=== PATIENT | female | born 1980 | race Caucasian/White ===

== ENCOUNTER → 2020-07-26 13:16 | Outpatient (BNVA) | payer OTHER, SELFPAY | PROVIDERS: Visit Provider Obstetrics & Gynecology | DX: Z76.89 Persons encountering health services in other specified circumstances (principal) ==

== ENCOUNTER 2020-10-08 13:01 | Outpatient (REF) | payer OTHER, SELFPAY ==
--- NOTE | 2020-10-08 13:07 | MM_ITS ---
EXAMINATION: MM SCREENING DIGITAL BREAST TOMOSYNTHESIS, BILATERAL CLINICAL INFORMATION: Screening. Asymptomatic. The lifetime risk of breast cancer based on the Tyrer-Cuzick Model is 7.6%. COMPARISON: Mammography: October 03, 2019 TECHNIQUE: Digital breast tomosynthesis is performed in both the craniocaudal and mediolateral oblique views along with computer-aided detection (CAD). Synthesized 2D images are generated from the tomosynthesis. Right breast exaggerated craniocaudal view also performed. FINDINGS: The breasts are extremely dense, which lowers the sensitivity of mammography (ACR BI-RADS breast composition Category d). There are no significant masses, abnormal calcifications, or other abnormalities. MM/MM tomosynthesis screening BI IMPRESSION: There are no significant changes from prior study. ASSESSMENT: BI-RADS 1: Negative RECOMMENDATION: Routine annual mammography screening. This patient's information was entered into a reminder system with a target due date for their next mammogram.
== END 2020-10-08 13:02 | disposition home or self-care (01) ==
LOC: HO.MAMMO 13:01
PROVIDERS: PCP Physician Assistant; Visit Provider Physician Assistant
DX: Z12.31 Encounter for screening mammogram for malignant neoplasm of breast (principal)
CPT/HCPCS: 77063; 77067

== ENCOUNTER 2023-06-21 08:28 | Outpatient (AMB) | payer MEDICAID, SELFPAY ==
[2023-06-21 08:50] VITALS: BP 130/90; BMI 27.9
--- NOTE | 2023-06-21 08:50 | MHC.OFFVIS ---
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 No complaints. Last Pap/HPV was negative in 2019, history of FRED 1 in 2018 Last Mammogram was BI-RADS 1 in 09/30 [facility] Medical History FRED I (cervical intraepithelial neoplasia I) LGSIL (low grade squamous intraepithelial dysplasia) Surgical History History of cholecystectomy H/O cosmetic surgery Tubal ligation status Female Reproductive History Menstrual Duration of menses: 3-5 days Date of last menstrual period: 05/24/23 control method: permanent sterilization Total pregnancies: 2 Full term: 2 Number of Living Children: 2 Date of last pap smear: 07/11/19 (negative) History of abnormal pap smear: Yes Date of Mammogram: 10/08/20 Review of Systems Const All systems reviewed & are unremarkable except as noted in HPI and below Card Reports as per HPI Resp Reports as per HPI GI Reports as per HPI and Reports no additional complaints Reports as per HPI Physical Exam Vital Signs: Last Vital Signs BP 130/90 H 06/21/23 08:50 BMI result Body Mass Index 27.9 Const General: cooperative, healthy appearing and comfortable Chest Chest palpation & inspection: normal inspection of the chest and normal palpation of entire chest wall Breast/axilla inspection: normal inspection of the breasts and normal inspection of the axillae Breast/axilla palpation: normal palpation of the breasts, normal palpation of the axillae and no axillary lymphadenopathy Resp Effort & Inspection: normal respiratory effort Auscultation: clear to auscultation bilaterally Percussion: percussion normal Cardio Palpation: normal PMI Rate: regular rate Rhythm: regular rhythm Heart sounds: no murmurs and no rubs Peripheral pulses: Peripheral pulses 2+ throughout GI Inspection: Yes normal to inspection Palpation (GI): Soft to palpation, nontender, no guarding, not rigid and No hepatosplenomegaly present Percussion: Yes normal to percussion Auscultation: normal bowel sounds Rectal Exam - Female: deferred General: Yes bladder normal to palpation External Female Exam: No lesion Speculum Exam - Vagina: normal appearance of the vagina, normal palpation, normal vaginal discharge and not erythematous Speculum Exam - Cervix: normal appearance of the cervix and normal palpation Bimanual exam- vagina & uterus: normal bimanual exam, normal palpation, uterine size normal, bladder normal to palpation, consistency normal and normal palpation Bimanual Exam- Adnexa, other: normal adnexae, no masses and no tenderness Assessment & Plan Assessment & Plan (1) Well woman exam: Code(s): Z01.419 - Encounter for gynecological examination (general) (routine) without abnormal findings Plan: Cotesting done. Mammogram ordered. Counseled the patient about the recommended dietary allowance of 1000 mg of Calcium & 600 IU of vitamin D. The patient was instructed to perform monthly self-breast exams and to schedule an annual exam in a year; All questions answered and the patient verbalized understanding. Instructed the patient to schedule annual exam in a year Orders: Orders MM screening mammo BI Today Z12.31 - Encounter for screening mammogram for malignant neoplasm of breast Coding Level of Care Code Est Pt Prev Care 40-64y(14643) Diagnoses Well woman exam Z01.419
== END 2023-06-21 09:12 | disposition home or self-care (01) ==
PROVIDERS: PCP Physician Assistant; Visit Provider Obstetrics & Gynecology
DX: Z01.419 Encounter for gynecological examination (general) (routine) without abnormal findings (principal)
CPT/HCPCS: 99396

== ENCOUNTER 2023-06-21 08:28 | Outpatient (REF) | payer MEDICAID, SELFPAY ==
[2023-06-28 05:33] LABS: HPV 16 RNA NOT DETECTED (NOT DETECTED); HPV mRNA E6/E7 rflx Detected (Not Detected)
== END 2023-06-21 08:29 | disposition home or self-care (01) ==
LOC: HO.LNP 08:28
PROVIDERS: PCP Physician Assistant; Visit Provider Obstetrics & Gynecology
DX: Z01.419 Encounter for gynecological examination (general) (routine) without abnormal findings (principal); N87.0 Mild cervical dysplasia
CPT/HCPCS: 87624; 87625; 88142; 99396

== ENCOUNTER 2023-07-16 12:39 | Outpatient (AMB) | payer MEDICAID, SELFPAY ==
[2023-07-16 12:59] VITALS: BP 130/88; BMI 27.8
--- NOTE | 2023-07-16 12:59 | MHC.OFFVIS ---
Intake Vital Signs 07/16/23 12:59 Height 5 ft 6 in Weight 172 lb BMI 27.8 BP 130/88 Intake Visit Reasons: Colposcopy Isotope Technician: Isotope Technician Present Allergies No Known Allergies [No Known Allergies*] Allergy (Verified 07/16/23 13:00) Is last menstrual period known: Yes Last menstrual period: 06/20/23 [facility] Medical History FRED I (cervical intraepithelial neoplasia I) LGSIL (low grade squamous intraepithelial dysplasia) Surgical History History of cholecystectomy H/O cosmetic surgery Tubal ligation status Female Reproductive History Menstrual Date of last menstrual period: 06/20/23 Physical Exam Vital Signs: Last Vital Signs BP 130/88 07/16/23 12:59 BMI result Body Mass Index 27.8 Office Procedures Colposcopy Before the procedure was started discussed with the patient the procedure, alternatives & all the risks associated with the procedure (bleeding, infection, injury to vagina, bladder, vessels, possible need for transfusion with all its risks) then patient signed the consent UPT done in the office & negative Pap smear = negative/HPV positive history of FRED 1 in 2019 Speculum inserted, acetic acid used Colposcopy done Transformation zone seen, acetowhite lesions identified at 12 o?clock, cervical biopsies taken from 12 o?clock, ECC done afterwards. Vaginoscopy of the upper vagina showed no evidence of any aceto-white lesions Monsel solution used for hemostasis. The patient tolerated well . At the end the patient was instructed to call if temp>100.4, abdominal pain, n/v, bleeding; The patient was given the following instructions: nothing per vagina, no intercourse or bath tub use. All questions answered the patient verbalized understanding. Instructed the patient to make an appointment in 2 weeks for follow-up This note was generated with a voice recognition program. Some errors may have been overlooked during the review of this note. Sometimes these errors may affect the content or meaning of a given sentence. 20711-Gsghgweuh of cervix including upper vagina with biopsy and ECC Procedure code (CPT) selection complete Results AMB Test Urine AMB Test Urine Negative Last Edit by JOSEPHINE Mobley on 07/16/23 13:03 Results Reviewed Results Reviewed: Laboratory Last Values [facility] Clinic Negative 07/16/23 13:03 Assessment & Plan Assessment & Plan Orders: Orders AMB HCG Urine Test Today Z32.02 - Encounter for test, result negative AMB Colposcopy Today B97.7 - Papillomavirus as the cause of diseases classified elsewhere Coding Level of Care Code Procedure Only CPT Codes Colposcopy - CPT: 44203-Rjsnczlno of cervix including upper vagina with biopsy and ECC ([id number])
== END 2023-07-16 13:22 | disposition home or self-care (01) ==
LOC: HO.HWS 12:39
PROVIDERS: PCP Physician Assistant; Visit Provider Obstetrics & Gynecology
DX: R87.810 Cervical high risk human papillomavirus (HPV) DNA test positive (principal); Z32.02 Encounter for pregnancy test, result negative
CPT/HCPCS: 57454

== ENCOUNTER 2023-07-16 12:39 | Outpatient (REF) | payer MEDICAID, SELFPAY | END 2023-07-16 12:40 | disposition home or self-care (01) | LOC: HO.LNP 12:39 | PROVIDERS: PCP Physician Assistant; Visit Provider Obstetrics & Gynecology | DX: N72 Inflammatory disease of cervix uteri (principal) | CPT/HCPCS: 57454; 81025; 88305 ==

== ENCOUNTER 2023-07-24 10:42 | Outpatient (REF) | payer MEDICAID, SELFPAY ==
--- NOTE | ~2023-07-24 | MM_ITS ---
EXAMINATION: MM SCREENING DIGITAL BREAST TOMOSYNTHESIS, BILATERAL CLINICAL INFORMATION: Screening. Asymptomatic. COMPARISON: Mammography: This study is compared with prior exams dating back to 2019. TECHNIQUE: Digital breast tomosynthesis is performed in both the craniocaudal and mediolateral oblique views along with computer-aided detection (CAD). Synthesized 2D images are generated from the tomosynthesis. FINDINGS: The breasts are heterogeneously dense, which may obscure small masses (ACR BI-RADS breast composition Category c). In the upper-outer quadrant of the right breast, there is a focal asymmetry which warrants additional mammographic and targeted sonographic imaging. In the left breast, there are no significant masses, abnormal calcifications, or other abnormalities. MM/MM tomosynthesis screening BI IMPRESSION: Focal asymmetry of the upper outer quadrant of the right breast warrants additional mammographic and targeted sonographic evaluation. When the patient returns for the diagnostic imaging, a laterally exaggerated cc view of the right breast should be added to the diagnostic imaging protocol. No mammographic signs of malignancy left breast. ASSESSMENT: BI-RADS BI-RADS 0 - Incomplete: Needs additional Imaging. RECOMMENDATION: 1. Additional views of the right breast 2. Targeted ultrasound if warranted after review of the additional views. 3. Radiology department staff will contact the patient for additional imaging. Additional Imaging required This examination should not preclude the clinical evaluation of a suspicious palpable abnormality. This patient's information was entered into a reminder system with a target due date for their next mammogram.
== END 2023-07-24 10:43 | disposition home or self-care (01) ==
LOC: HO.MAMMO 10:42
PROVIDERS: PCP Physician Assistant; Visit Provider Obstetrics & Gynecology
DX: Z12.31 Encounter for screening mammogram for malignant neoplasm of breast (principal)
CPT/HCPCS: 77063; 77067

== ENCOUNTER → 2023-07-24 11:15 | Outpatient (BNV) | payer MEDICAID, SELFPAY | PROVIDERS: PCP Physician Assistant; Visit Provider Radiology Diagnostic Radiology | DX: Z12.31 Encounter for screening mammogram for malignant neoplasm of breast (principal) | CPT/HCPCS: 77063; 77067 ==

== ENCOUNTER 2023-08-27 08:28 | Outpatient (AMB) | payer MEDICAID, SELFPAY ==
--- NOTE | 2023-08-27 08:39 | A.OFFVIS_ITS ---
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 The patient is doing well with no complaints. The pathology showed the following: A. Cervix, 12 o'clock, biopsy: Chronic cervicitis with reactive squamous epithelial changes; negative for squamous intraepithelial lesion. B. Endocervix, curettage: Fragments of benign endocervical glands; negative for squamous intraepithelial lesion. COMMENT: Note is made of the patient's previous Pap smear ([id number]; NILM; HPV+) [facility] Medical History FRED I (cervical intraepithelial neoplasia I) LGSIL (low grade squamous intraepithelial dysplasia) Surgical History History of cholecystectomy H/O cosmetic surgery Tubal ligation status Female Reproductive History Menstrual Date of last menstrual period: 07/30/23 Review of Systems Const All systems reviewed & are unremarkable except as noted in HPI and below Reports as per HPI and Reports no additional complaints GI Reports no additional complaints Reports no additional complaints Assessment & Plan Assessment & Plan (1) HPV in female: Code(s): B97.7 - Papillomavirus as the cause of diseases classified elsewhere Plan: Discussed with the patient the pathology results of the colposcopy biopsies & endocervical curettage ( negative). Discussed with the patient the sensitivity specificity, positive and negative predictive value in detecting cervical cancer in addition discussed the regression, persistence and progression rates. Recommended co-testing in 12 months, if cytology and or HPV are abnormal will proceed was colposcopy biopsy and endocervical curettage. Instructions given to the patient to schedule a co test appointment in 1 year. All questions answered the patient verbalized understanding. Coding Level of Care Code Est Pt Level 3 (03376) Diagnoses HPV in female B97.7
[2023-08-27 08:42] VITALS: BP 146/92; BMI 27.8
== END 2023-08-27 08:43 | disposition home or self-care (01) ==
PROVIDERS: PCP Physician Assistant; Visit Provider Obstetrics & Gynecology
DX: R87.810 Cervical high risk human papillomavirus (HPV) DNA test positive (principal)
CPT/HCPCS: 99213

== ENCOUNTER → 2023-08-27 08:28 | Outpatient (BNVA) | payer MEDICAID, SELFPAY | PROVIDERS: PCP Physician Assistant; Visit Provider Obstetrics & Gynecology | DX: B97.7 Papillomavirus as the cause of diseases classified elsewhere (principal) | CPT/HCPCS: 99212 ==

== ENCOUNTER 2023-08-30 14:30 | Outpatient (REF) | payer MEDICAID, SELFPAY ==
--- NOTE | ~2023-08-30 | MM_ITS ---
EXAMINATION: MM DIAGNOSTIC DIGITAL BREAST TOMOSYNTHESIS, RIGHT US BREAST LIMITED, RIGHT MAMMOGRAPHY: CLINICAL INFORMATION: Evaluate focal asymmetry upper outer right breast seen on screening exam. COMPARISON: Mammography: Screening mammography 07/24/2023, and dating back to 2019. TECHNIQUE: Digital breast tomosynthesis is performed in the following views: A full-field 3-D right exaggerated CCL view, full-field 3-D right mediolateral view, 3-D spot compression right MLO view x2, and 3-D spot compression right CC views x1. FINDINGS: The breasts are heterogeneously dense, which may obscure small masses (ACR BI-RADS breast composition Category c). In the upper outer right breast, there are at least 3 circumscribed low-density masses which are most likely related to cysts within bands of heterogeneously dense breast parenchyma. These will be evaluated by ultrasound. Otherwise, no suspicious calcifications, architectural distortion, or suspicious masses in the right breast. ULTRASOUND: CLINICAL INFORMATION: Evaluate focal asymmetry upper outer right breast. COMPARISON: None TECHNIQUE: Targeted sonographic evaluation was performed using a high frequency linear transducer. Attention was given to the upper outer right breast. Selected archived documentation. FINDINGS: RIGHT BREAST: In the 10:00 axis of the right breast, 4 cm from the nipple, there are 3 clustered simple cysts, the larger more superficial measuring 2.2 x 1.2 x 1.7 cm. The deeper measures approximately 1.6 x 1.4 x 1.4 cm. There is a small anterior simple cyst measuring a diameter of 7 mm. Abutting this, there is heterogeneously dense fibrocystic breast tissue present. No suspicious masses, abnormal shadowing, or edema within the soft tissue planes. MM/MM tomosynthesis added views R IMPRESSION: The abnormality in the upper outer quadrant of the RIGHT breast at the 10:00 axis is related to numerous grouped simple cysts measuring up to 2.2 cm, superimposed upon heterogeneously dense fibrocystic glandular stroma. Findings are benign. No further workup recommended. Recommend the patient return to routine annual screening. OVERALL ASSESSMENT: Mammography: BI-RADS 2 - Benign Findings Ultrasound: BI-RADS 2 - Benign Findings RECOMMENDATION: 1 year F/U Results were provided to the patient at time of visit by the technologist. This patient's information was entered into a reminder system with a target due date for their next mammogram.
== END 2023-08-30 14:31 | disposition home or self-care (01) ==
LOC: HO.MAMMO 14:30
PROVIDERS: PCP Physician Assistant; Visit Provider Obstetrics & Gynecology
DX: N64.89 Other specified disorders of breast (principal)
CPT/HCPCS: 76642; 77061; 77065

== ENCOUNTER → 2023-08-30 15:00 | Outpatient (BNV) | payer MEDICAID, SELFPAY | PROVIDERS: PCP Physician Assistant; Visit Provider Radiology Diagnostic Radiology | DX: R92.8 Other abnormal and inconclusive findings on diagnostic imaging of breast (principal) | CPT/HCPCS: 76642; 77061; 77065 ==

== ENCOUNTER 2024-07-30 10:48 | Outpatient (REF) | payer MEDICAID, SELFPAY ==
--- NOTE | ~2024-07-30 | MM_ITS ---
EXAMINATION: MM SCREENING DIGITAL BREAST TOMOSYNTHESIS, BILATERAL CLINICAL INFORMATION: Screening. Asymptomatic. COMPARISON: Mammography: Comparison is made with available priors TECHNIQUE: Digital breast mammography with tomosynthesis is performed in both the craniocaudal and mediolateral oblique views along with computer-aided detection (CAD). FINDINGS: The breasts are heterogeneously dense, which may obscure small masses (ACR BI-RADS breast composition Category c). Bilateral circumscribed oval masses which wax and wane consistent with benign fibrocystic changes. Some were demonstrated to be simple cysts on prior ultrasounds. There are no significant masses, abnormal calcifications, or other abnormalities. MM/MM tomosynthesis screening BI IMPRESSION: No mammographic evidence of malignancy. ASSESSMENT: BI-RADS BI-RADS 2 - Benign Findings RECOMMENDATION: Routine annual mammography screening. 1 year F/U This examination should not preclude the clinical evaluation of a suspicious palpable abnormality. This patient's information was entered into a reminder system with a target due date for their next mammogram. Electronically signed by: Phyllis Barton DO 08/06/2024 02:51 PM ANITA
== END 2024-07-30 10:49 | disposition home or self-care (01) ==
LOC: HO.MAMMO 10:48
PROVIDERS: Visit Provider Physician Assistant
DX: Z12.31 Encounter for screening mammogram for malignant neoplasm of breast (principal)
CPT/HCPCS: 77063; 77067

== ENCOUNTER → 2024-07-30 11:00 | Outpatient (BNV) | payer MEDICAID, SELFPAY | PROVIDERS: Visit Provider Internal Medicine | DX: Z12.31 Encounter for screening mammogram for malignant neoplasm of breast (principal) | CPT/HCPCS: 77063; 77067 ==

== ENCOUNTER 2024-08-04 11:42 | Outpatient (REF) | payer MEDICAID, SELFPAY ==
[2024-08-14 13:40] LABS: HPV 16,18/45 See PAP report
== END 2024-08-04 11:43 | disposition home or self-care (01) ==
LOC: HO.LNP 11:42
PROVIDERS: PCP Physician Assistant; Visit Provider Obstetrics & Gynecology
DX: Z01.419 Encounter for gynecological examination (general) (routine) without abnormal findings (principal)
CPT/HCPCS: 87624; 88175; 99396

== ENCOUNTER 2024-08-04 11:42 | Outpatient (AMB) | payer MEDICAID, SELFPAY ==
--- NOTE | 2024-08-04 11:49 | MHC.OFFVIS ---
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 No complaints. Last Pap/HPV was done in 07/02 was negative/HPV positive, colpo biopsy ECC negative Last Mammogram was in 08/03, results are still pending No previous screening colonoscopy [facility] Medical History FRED I (cervical intraepithelial neoplasia I) LGSIL (low grade squamous intraepithelial dysplasia) Surgical History History of cholecystectomy H/O cosmetic surgery Tubal ligation status Social History Household Members Other:: daughter Housing: Apartment Alcohol intake: never Patient Tobacco Use Status: Never used Tobacco Current occupational status: employed Current occupation: [employer] Sexually active: Yes Sexual orientation: Straight/Heterosexual Gender identity: Female Female Reproductive History Menstrual Date of last menstrual period: 07/06/24 control method: permanent sterilization Total pregnancies: 2 Full term: 2 Number of Living Children: 2 Date of last pap smear: 06/21/23 History of abnormal pap smear: Yes (HPV +) Date of Mammogram: 07/30/24 Review of Systems Const All systems reviewed & are unremarkable except as noted in HPI and below Card Reports as per HPI Resp Reports as per HPI GI Reports as per HPI and Reports no additional complaints Reports as per HPI Physical Exam Vital Signs: Last Vital Signs BP 124/86 08/04/24 11:53 BMI result Body Mass Index 27.9 Const General: cooperative, healthy appearing and comfortable Chest Chest palpation & inspection: normal inspection of the chest and normal palpation of entire chest wall Breast/axilla inspection: normal inspection of the breasts and normal inspection of the axillae Breast/axilla palpation: normal palpation of the breasts, normal palpation of the axillae and no axillary lymphadenopathy Resp Effort & Inspection: normal respiratory effort Auscultation: clear to auscultation bilaterally Percussion: percussion normal Cardio Palpation: normal PMI Rate: regular rate Rhythm: regular rhythm Heart sounds: no murmurs and no rubs Peripheral pulses: Peripheral pulses 2+ throughout GI Inspection: Yes normal to inspection Palpation (GI): Soft to palpation, nontender, no guarding, not rigid and No hepatosplenomegaly present Percussion: Yes normal to percussion Auscultation: normal bowel sounds Rectal Exam - Female: deferred General: Yes bladder normal to palpation External Female Exam: No lesion Speculum Exam - Vagina: normal appearance of the vagina, normal palpation, normal vaginal discharge and not erythematous Speculum Exam - Cervix: normal appearance of the cervix and normal palpation Bimanual exam- vagina & uterus: normal bimanual exam, normal palpation, uterine size normal, bladder normal to palpation, consistency normal and normal palpation Bimanual Exam- Adnexa, other: normal adnexae, no masses and no tenderness Assessment & Plan Assessment & Plan (1) Well woman exam: Code(s): Z01.419 - Encounter for gynecological examination (general) (routine) without abnormal findings Category: Medical Plan: Cotesting done. Counseled the patient about the recommended dietary allowance of 1000 mg of Calcium & 600 IU of vitamin D. Referral to GI for screening colonoscopy placed The patient was instructed to perform monthly self-breast exams and to schedule an annual exam in a year; All questions answered and the patient verbalized understanding. Instructed the patient to schedule annual exam in a year Orders: Referrals Gastroenterology Referral Z12.11 - Encounter for screening for malignant neoplasm of colon Coding Level of Care Code Est Pt Prev Care 40-64y(78827) Diagnoses Well woman exam Z01.419
[2024-08-04 11:53] VITALS: BP 124/86; BMI 27.9
== END 2024-08-04 12:26 | disposition home or self-care (01) ==
LOC: HO.HWS 11:42
PROVIDERS: PCP Physician Assistant; Visit Provider Obstetrics & Gynecology
DX: Z01.419 Encounter for gynecological examination (general) (routine) without abnormal findings (principal)
CPT/HCPCS: 99396

== ENCOUNTER 2025-04-21 17:53 | Emergency (ER) | payer MEDICAID, SELFPAY ==
--- NOTE | ~2025-04-21 | CT_ITS ---
CLINICAL HISTORY: severe migrane CT HEAD WITHOUT CONTRAST Comparison: None provided Findings: There is significant motion artifact. No acute intracranial hemorrhage, extra-axial fluid collection, hydrocephalus or midline shift. No significant atrophy-like change or white matter disease. No sinus or mastoid fluid. Visualized orbits: No acute abnormalities. There is no acute fracture. There are dense falcine calcifications anteriorly. There are dense calcifications in or adjacent to the region of the habenula. IMPRESSION: 1. Motion affected study. 2. No acute intracranial process. This document has been electronically signed by: Stacy Velazquez DO on 04/21/2025 20:56:51
[2025-04-21 17:59] VITALS: BP 151/83; PULSE 67; RESP 16; TEMP 36.5; O2SAT 99; BMI 28.4
--- NOTE | 2025-04-21 17:59 | ED.GENADULT ---
HPI - General Adult General Chief complaint: Headache Stated complaint: Migraine X4days Time Seen by Provider: 04/21/25 18:49 Source: patient Mode of arrival: ambulatory Limitations: no limitations History of Present Illness ED Provider: CONRAD Brooks HPI narrative: This is a 45-year-old female history of HPV, candidiasis of the skin, self-reported history of migraines presenting to the emergency department with concerns of migraine for the past 4 days. Patient reports she thinks this started after she hit her head on a side rail at work. No LOC. She reports this migraine feels different than her typical it is more severe and diffuse in nature. Typically the migraine goes away on its own after taking Excedrin however she has tried this with no relief. She reports pain is severe. Bright lights bother her and she feels nauseous at this time. She reports vomiting earlier today and yesterday. denies fevers, chills, neck pain, vision changes, dizziness, weakness, difficulties with ambulation, chest pain, shortness of breath, recent illness. Related Data Home Medications ?Medication ?Instructions ?Recorded ?Confirmed propranolol 40 mg tablet 40 mg PO BEDTIME 07/16/23 Previous Rx's ?Medication ?Instructions ?Recorded clotrimazole-betamethasone 1 1 applic topical BID 5 days #45 07/26/ %-0.05 % topical cream grams Allergies Allergy/AdvReac Type Severity Reaction Status Date / Time No Known Allergies (No Known Allergy Verified 04/21/25 18:01 Allergies*) Review of Systems Review of Systems: Yes all other systems are reviewed and are negative PMFSH Past Medical History Attestation statement: The following information was validated with the patient. Source: old records reviewed and nursing notes reviewed Medical History FRED I (cervical intraepithelial neoplasia I) LGSIL (low grade squamous intraepithelial dysplasia) Surgical History History of cholecystectomy H/O cosmetic surgery Tubal ligation status Social History Social History Household Members Other:: daughter Housing: Apartment Alcohol intake: never Patient Tobacco Use Status: Never used Tobacco Current occupational status: employed Current occupation: GENERAL ENGINEER Sexual orientation: Straight/Heterosexual Gender identity: Female Physical Exam ED Exam Exam: Appearance: Alert.? Oriented X3.? No acute distress.? Head: Normocephalic, atraumatic, no step-offs or deformities Eyes: Pupils equal, round and reactive to light.? ENT: Pharynx normal.? Neck: Normal inspection.? Neck supple.? CVS: Normal heart rate and rhythm.? Pulses normal.? Respiratory: No respiratory distress.? Breath sounds normal.? Abdomen: Soft and nontender.? Skin: Skin warm and dry.? Normal skin color.? Normal skin turgor.? Extremities: No lower extremity edema.? No calf ttp. 5/5 strength to bilateral upper and lower extremities Back: No midline tenderness, no C-spine tenderness, full range of motion, no CVA tenderness bilaterally Neuro: Oriented X 3.? No motor deficit.? No sensory deficit. CN 2-12 intact . Normal [id number], jyns-mf-[id number] steady tandem gait with normal coordination Vital Signs: Vital Signs - 24 hr 04/21/25 17:59 04/21/25 19:22 Temperature 97.7 F 98.0 F Pulse Rate 67 63 Respiratory Rate 16 16 Blood Pressure 151/83 H 123/82 Pulse Oximetry 99 99 Oxygen Delivery Method Room Air Room Air BMI result Body Mass Index 28.4 Course Course Course Narrative: Rapid medical examination performed in triage by Tarsha Logan PA-C. Patient is a 45 year old assigned female at presenting to the emergency department with a migraine headache. Detailed physical exam and review of systems are deferred to the tree specialist. Labs ordered. Patient placed back in the waiting room pending room availability and results. Reevaluation(s) Reevaluation #1: 815pm: signed out to me pending relief with migraine cocktail JCB Reevaluation #2: CBC unremarkable. Chemistry with no acute findings meeting intervention. Normal C RP. Flu, COVID, RSV negative. Head CT pending Time: 20:19 Medications Administered Discontinued Medications Generic Name Dose Route Start Last Admin Trade Name Freq PRN Reason Stop Dose Admin Diphenhydramine HCl 25 mg 04/21/25 18:50 04/21/25 19:08 Diphenhydramine Hcl 50 Mg/Ml Vial IVPUSH 04/21/25 18:51 25 mg ONCE ONE Administration Ketorolac Tromethamine 30 mg 04/21/25 18:50 04/21/25 19:08 Ketorolac Tromethamine 15 Mg/Ml Vial IVPUSH 04/21/25 18:51 30 mg ONCE ONE Administration Metoclopramide HCl 10 mg 04/21/25 18:50 04/21/25 19:15 Metoclopramide Hcl 10 Mg/2 Ml Vial IVPUSH 04/21/25 18:51 10 mg ONCE ONE Administration Medical Decision Making Medical Decision Making [facility] Narrative: 1922 45-year-old female presents with migraine x4 days. Not on blood thinners. Physical exam benign. Normal cerebellar function. This is likely typical migraine versus headache. Unlikely temporal arteritis, intracranial hemorrhage, stroke, posterior stroke, meningitis or encephalitis. NIHSS-0 Plan labs, imaging. Differential Diagnosis Differential Diagnoses: The differential diagnosis associated with the presentation includes (This is likely typical migraine versus headache. Unlikely temporal arteritis, intracranial hemorrhage, stroke, posterior stroke, meningitis or encephalitis.) Admission/Observation Consideration of admission/observation: Escalation of care including admission/observation considered Lab Data [facility] Lab Attestation statement: I reviewed the patient's lab results. 04/21/25 18:10 04/21/25 18:10 Labs: Lab Results 04/21/25 Range/Units 18:10 WBC 5.6 (4.8-10.8) X10*3/uL RBC 4.36 (4.20-5.50) X10*6/uL Hgb 12.4 (12.0-16.0) g/dl Hct 36.9 L (37.0-47.0) % MCV 84.6 (80.0-98.0) fL MCH 28.4 (27.0-33.0) pg MCHC 33.6 (31.0-35.0) g/dl RDW 13.6 (11.0-16.0) % Plt Count 423 H (160-400) X10*3/uL MPV 9.8 (9.4-12.3) fL Immature Gran % (Auto) 0.4 (0.0-0.4) % Neut % (Auto) 40.2 L (45-73) % Lymph % (Auto) 47.7 H (20-40) % [place] % (Auto) 8.8 (2-11) % Eos % (Auto) 2.0 (0-4) % Baso % (Auto) 0.9 (0-2) % Lymph # (Auto) 2.7 (1.2-4.9) X10*3/uL [place] # (Auto) 0.5 (0.1-1.2) X10*3/uL Eos # (Auto) 0.1 (0.0-0.4) X10*3/uL Baso # (Auto) 0.1 (0.0-0.2) X10*3/uL Abs Immat Gran (auto) 0.02 (0.00-0.03) X10*3/uL Absolute Neuts (auto) 2.2 (2.0-8.3) x10*3/uL Absolute Nucleated RBC 0.000 (0.0-0.012) X10*3/uL Nucleated RBC % (auto) 0.0 (0.0-0.2) /100WBC ESR 20 (0-20) MM/HR Sodium 137 (135-145) mmol/L Potassium 4.2 (3.3-5.1) mmol/L Chloride 104 (96-108) mmol/L Carbon Dioxide 25 (22-29) mmol/L Anion Gap 12 (12-20) BUN 9 (9-16) mg/dL Creatinine 0.85 (0.5-1.4) mg/dL Estim Creat Clear Calc 88.1 Estimated GFR > 60 Random Glucose 133 H (60-115) mg/dL Calcium 9.4 (8.4-10.2) mg/dL Magnesium 2.1 (1.6-2.6) mg/dL Total Bilirubin 1.0 (0.0-1.0) mg/dL AST 41 H (5-31) U/L ALT 41 H (0-31) U/L Alkaline Phosphatase 83 (39-117) U/L C-Reactive Protein 0.23 (< or = 0.50) mg/dL Total Protein 7.8 (6.5-8.0) g/dL Albumin 4.4 (3.5-5.0) g/dL Influenza Type A (PCR) NEGATIVE (Negative) Influenza Type B (PCR) NEGATIVE (Negative) RSV RNA Qual (PCR) NEGATIVE (Negative) SARS-CoV-2 RNA (RT-PCR) NEGATIVE (Negative) Independent Interpretation I performed an independent interpretation of an: CT Scan Radiology Impression Discussion of test interpretation with radiology: I have reviewed the radiologist's reading. Discharge Plan Discharge Clinical Impression: Migraine Patient Disposition: Home, Self-Care Instructions: Migraine Headache (ED) Additional Instructions: Take your medications as prescribed. If you were prescribed antibiotics today, it is important that you take your medication to their entirety, do not skip any doses, do not finish them early. Your head CT did not have any acute pathology or abnormalities noted Follow-up with your primary care provider this week. Return to the emergency department with new or worsening symptoms. Such as fevers, chills, chest pain, shortness of breath, nausea, vomiting, dizziness, headache, vision changes, lethargy In case of emergency call 911 Prescriptions: No Action clotrimazole-betamethasone 1-0.05 % cream 1 applic topical BID 5 Days Qty: 45 0RF propranolol 40 mg tablet 40 mg PO BEDTIME Referrals: Edvin Harrison PA [Primary Care Provider, Medical] Discharge Date/Time: 04/21/25 21:21 Print Language: Uzbek
--- OUTSIDE RECORDS SUMMARY | 2025-04-21 18:12 | XMS_ITS | Clinical Summary ---
Author Organization [facility] Address [address] [place] [address] Care Team Providers Care Polisher Implant Name Role Phone Edvin Harrison Primary Care Provider [phone] Source Comments PLEASE NOTE, if this patient is a minor, it may be UNLAWFUL to discuss sensitive information that is contained in these records (such as FAMILY PLANNING, MENTAL HEALTH or SUBSTANCE ABUSE) with the minor patient's parent or other person without the patient's specific authorization.[facility] Allergies No known active allergies Medications LIDOCAINE PAIN RELIEF 4 % ptmd APPLY 1 PATCH TOPICALLY TO THE SKIN TWICE DAILY FOR 5 DAYS 03/02/20 23 Active blood pressure monitorIndication s:Hypertension, unspecified type Dispense one automated BP monitor, to be used daily and prn, length of need 99 years 1 Kit 1 10/24/19 24 Active blood pressure test kit-mediumIndicat ions:Hypertension , unspecified type Please dispense one blood pressure cuff for patient with elevated BP, goal 130/80. 1 Kit 2 10/24/19 24 Active ketoconazole (NIZORAL) 2 % shampoo Apply topically once daily as needed for itching APPLY TOPICALLY TO THE SCALP 2 TIMES EVERY WEEK. LEAVE ON 5 MINUTES THEN WASH OFF Authorized by: MAUREEN CUELLAR 120 mL 2 10/24/19 24 Active betamethasone dipropionate 0.05 % lotion Apply topically once daily Authorized by: MAUREEN CUELLAR 60 mL 10/24/19 24 Active ferrous sulfate 325 mg (65 mg iron) tabletIndications :Iron deficiency Take 1 Tablet by mouth every other day With breakfast 90 Tablet 02/12/20 24 Active naloxone (NARCAN) 4 mg/actuation nasal sprayIndications: Closed fracture of proximal end of right ulna, unspecified fracture morphology, initial encounter Place 1 [place] into the nostril(s) as needed for opioid reversal (Overdose) 2 Each 11 07/10/20 24 Active diphenhydrAMINE (BENADRYL) 25 mg capsule Take 1 Capsule by mouth every 6 (six) hours NEEDED FOR ITCHING!! 360 Capsule 1 07/10/20 24 Active bismuth subsalicylate (PEPTO BISMOL) 262 mg/15 mL suspensionIndicat ions:Diarrhea, unspecified type Take 15 mL by mouth every 6 (six) hours as needed for indigestion 236 mL 2 07/10/20 24 Active omeprazole (PRILOSEC) [address] capsuleIndication s:Gastroesophagea l reflux disease without esophagitis Take 1 Capsule by mouth every morning before breakfast 90 Capsule 1 07/10/20 24 Active loratadine (CLARITIN) 10 mg tabletIndications :Tinea corporis Take 1 Tablet by mouth once daily as needed for allergies 90 Tablet 1 10/06/19 25 Active naproxen (NAPROSYN) 500 mg tabletIndications :Strain of neck muscle, initial encounter Take 1 Tablet by mouth 2 (two) times daily with a meal 90 Tablet 1 11/05/19 25 Active triamcinolone (KENALOG) 0.1 % cream Apply topically 2 (two) times daily 453.6 g 2 11/05/19 25 Active hydroCHLOROthiazi de (MICROZIDE) 12.5 mg capsuleIndication s:Primary hypertension Take 1 Capsule by mouth once daily 90 Capsule 1 11/14/19 25 Active propranoloL (INDERAL) 40 mg tabletIndications :Primary hypertension Take 1 Tablet by mouth nightly at bedtime 90 Tablet 1 12/09/19 25 Active SUMAtriptan succinate (IMITREX) 50 mg tabletIndications :Other migraine without status migrainosus, not intractable Take 1 Tablet by mouth 1 (one) time as needed for migraine. 8 Tablet 1 02/10/20 25 Active butalbital-acetam inophen-caff 50-325-40 mg per capsuleIndication s:Chronic migraine without aura without status migrainosus, not intractable Take 1 Capsule by mouth every 4 (four) hours as needed for headaches. 30 Capsule 1 02/10/20 25 Active fluticasone furoate (VERAMYST) 27.5 mcg/actuation nasal sprayIndications: allergic rhinitis Place 1 [place] into the nostril(s) once daily Indications: inflammation of the nose due to an allergy. 10 g 2 02/13/20 25 Active Active Problems Patient Care Coordination No te Formatting of this note migh t be different from the original. Pre Visit Plan, 06/17/19, for Edvin Grayson PA-C patient in for medication update. Ella Henao. 06/11/19, Last seen for Migraine. Rx'ed galcanezumab - GNLM 300 mg/3mL (100 mg/mL x3) for 1 subQ injection weekly and excedrin 50-325-40 mg tab for 1 tab q4H PRN Headaches (no more than 2 headache days/week). Injectable was denied. 02[place]06/[place], [facility] [place]: Suspect Sx's are related to either a migraine induced vestibular syndrome or vice versa. [facility] today for early f/u tomorrow or next week. Rx'ed meclizine 25 mg PO TID prn Dizziness. - ENT report needed. Problem Noted Date Diagnosed Date Hypertension 02/15/2023 Posttraumatic stress disorder 05/16/2022 Low vitamin D level 06/19/2019 Anxiety 05/20/2019 Chronic migraine without aur a without status migrainosus, not intractable 05/20/2019 Hyperhidrosis 12/01/2015 Alopecia Resolved Problems Problem Noted Date Diagnosed Date Resolved Date Traumatic loss of toenail of great toe 05/20/2019 03/07/2023 Urinary tract infection without hematuria 05/20/2019 04/29/2021 Elevated BP without diagnosis of hypertension 09/02/20 18 03/07/2023 Nondisplaced fracture of medial malleolus 06/20/2017 03/07/2023 Overview (06/20/2017): Saw [facility] on 06/07/17 - put her into a tall CAM walker boot - weight bearing as tolerated. RTC in 2 weeks. Migraine with aura 3 Encounters Date Type Department Care Team Description 03/20/2025 10:00 AM EDT Office Visit [facility] [address] [place] [id number] Fercho Duarte MD 02/12/2025 9:00 AM EDT Office Visit [facility] [address] [place] [phone] Edvin Harrison PA from Last 3 Months Immunizations Immunization Administration Dates Next Due Flu, Cell Culture based, Mul ti Dose, 6m+, Flucelvax 07/18/2018,07/18/2018 Flu, Preservative Free 06/21/2023,2022,06/11/2019,2016 Hep B,adult,adjuvanted (HEPLISAV) 07/30/2023,08/2023 INFLUENZA, SEASONAL, INJECTABLE 06/19/2013 MODERNA COVID-19 VACCINE BIV ALENT, BLUE CAP, 6M+ 10/09/2022 Pfizer COVID-19 (Comirnaty), Mrna, Lnp-s, Pf, Rock-sucrose, 30 Mcg/0.3 Ml, 12yr+ 07/30/2023 TDAP 10/20/2016 Family History Medical History Relation Name Comments Alcohol/Drug Abuse Father Cancer Maternal Grandfather colon Arthritis Maternal Grandmother Hypertension Maternal Grandmother Cancer Maternal Uncle unknown Hypertension Mother Relation Name Status Comments Father Maternal Grandfather Maternal Grandmother Maternal Uncle Mother Alive Social History Tobacco Use Types Packs/Day Years Used Date Smoking Tobacco: Never Passive Smoke Exposure: Never Smokeless Tobacco: Never Tobacco Cessation:Counseling Given: Not Answered Alcohol Use Standard Drinks/Week Comments No 0 (1 standard drink = 0.6 oz pur e alcohol) Social Connections Answer Date Recorded Connectedness 1 10/31/2023 Financial Resource Strain Answer Date R ecorded Financial Resource Strain 1 2023 Stress Answer Date Recorded Stress 1 10/31/2023 Physical Activity Answer Date Recorded Physical Activity 0 05/04/2019 Food Insecurity Answer Date Recorded Food 1 10/31/2023 Transportation Needs Answer Date Record ed Transportation 1 10/31/2023 Housing Stability Answer Date Recorded Housing 1 10/31/2023 Safety and Environment Answer Date Rene rded Safety 1 10/31/2023 Utilities Answer Date Recorded Utilities 1 10/31/2023 Employment Answer Date Recorded Stress 0 01/03/2022 Comments No Sex and Gender Information Value Date Recorded Sex Assigned at Female 08/15/2017 8:08 AM PST Legal Sex Female 11:22 AM PST Gender Identity Female 08/15/2017 8:08 AM PST Sexual Orientation Don't know 08/15/2017 8: 08 AM PST 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 Not on file Not on file Last Filed Vital Signs Vital Sign Reading Time Taken Comments Blood Pressure 145/90 03/20/2025 9:58 AM EDT Pulse 57 03/20/2025 9:58 AM EDT Temperature 37.1 C (98.8 F) 02/12/2025 9:02 AM EDT Respiratory Rate 16 03/20/2025 9:58 AM EDT Oxygen Saturation 98% 03/20/2025 9:58 AM EDT Inhaled Oxygen Concentration - - Weight 78.9 kg (174 lb) 03/20/2025 9:58 AM EDT Height 170.2 cm (5' 7 ) 03/20/2025 9:58 AM EDT Body Mass Index 27.25 03/20/2025 9:58 AM EDT Plan of Treatment Health Maintenance Due Date Last Done Comments HPV Screening [address] Colonography 2024 Colonoscopy 2024 Colorectal Cancer Screening 2024 FIT/gFOBT 2024 Fecal DNA 2024 Flexible Sigmoidoscopy 2024 [id number] ( season) 2024 07/30/2023, 10/09/2022, 10/25/2020, Additional history exists Alcohol and Drug Screen 09/10/2024 10/31/19, 10/31/2023, 11/03/2022, Additional history exists Annual Wellness (Adult): Indicated (All Coverage) 02/10/2025 02/11/2024, 11/03/2022, 10/20/2016 Imm-Influenza (#1) 2025 06/21/2023, 0 10/09/2022, 06/11/2019, Additional history exists Breast Cancer Screening (Mammogram) 09/11/2025 03/11/2025, 07/30/2024, 08/30/2023, Additional history exists Anxiety Screening 02/12/2026 02/12/2025 Diabetes Screening 02/12/2026 02/12/2025, 0 01/16/2024, 12/21/2023, Additional history exists Relationship Safety Screening/Counseling 02/12/2026 02/12/2025, 10/31/2023, 11/03/2022, Additional history exists Tobacco Screening 03/20/2026 03/20/2025 Imm-DTaP/Tdap/Td (2 - Td or Tdap) 10/20/2026 017 Lipid Screening 12/20/2026 12/21/2023, 10/12, 10/20/2016 Pap Smear 03/20/2028 03/20/2025, 07/22/2014 Cervical Cancer Screening 03/20/2030 Pap + HPV 03/20/2030 03/20/2025 HIV Screening Completed 11/03/2022, 03/11, 08/17/2017 Hepatitis C Screening Completed 11/03/2022 , 04/01/2018, 08/17/2017, Additional history exists Imm-Hepatitis B Completed 07/30/2023, 06/21/2023 Depression Annual Screen Completed 025, 10/31/2023, 10/20/2016, Additional history exists Cervical Ablation/Cold-Knife Conization Discontinued Cervical Cryotherapy Discontinued Colposcopy Discontinued Endometrial Biopsy Discontinued Excision/Leep Discontinued HPV Genotyping Discontinued Vaginal Pap Discontinued Vulvoscopy Discontinued Goals Goal Patient Goal Type Associated Problems Recent Progress Patient-Stated? Author Blood Pressure < 130/80 Blood Pressure Elevated BP without diagnosis of hypertension 145/90(03/20 9:58 AM EDT) No Blue Nunez, PharmD Hypertension: Decrease sodium intake General Improving( 4:58 PM PST) No Bryan Rincon, AndreD Procedures Procedure Name Priority Date/Time Associated Diagnosis Comments THINPREP IMAGING PAP, HPV MRNA E6/E7 RFLEX HPV 16,18/45 CT/NG Routine 03/20/2025 9:46 AM EDT Screening for HPV (human papillomavirus) REFERRAL FOR MAMMOGRAM Routine 03/11/2025 3:00 AM EDT Encounter for screening mammogram for malignant neoplasm of breast Routine adult health maintenance HGBA1C W/MPG Routine 02/12/2025 9:39 AM EDT Encounter for screening mammogram for malignant neoplasm of breast Routine adult health maintenance LIPID PANEL Routine 12/21/2023 4:30 PM EDT Primary hypertension HIV 1/2 AG & AB W/RFLX (4TH GEN) Routine 11/03/2022 4:28 PM EST Sexually transmitted disease exposure HEPATITIS C AB W/RFLX HCV RNA, QT, RT PCR Routine 11/03/2022 4:28 PM EST Sexually transmitted disease exposure from Last 3 Months or Most Recently Relevant to Health Maintenance Results * THINPREP IMAGING PAP, HPV MRNA E6/E7 RFLEX HPV 16,18/45 CT/NG Cervical Swab Routine (03/20/2025 9:46 AM EDT) CHLAMYDIA TRACHOMATIS RNA, TMA NOT DETECTED NOT DETECTED [facility] NEISSERIA GONORRHOEAE RNA, TMA NOT DETECTED NOT DETECTED [facility] COMMENT [facility] CLINICAL INFORMATION See Note [facility] Comment:None given LMP See Note [facility] Comment:NONE GIVEN PREV. PAP See Note [facility] Comment:NONE GIVEN PREV. BX See Note [facility] Comment:NONE GIVEN SOURCE See Note [facility] Comment:None given STATEMENT OF ADEQUACY See Note [facility] Comment: Satisfactory for evaluation. Endocervical/transformation zone component present. INTERPRETATION/RESU LT See Note [facility] Comment: Cytology Results: Negative for intraepithelial lesion or malignancy. COMMENT See Note [facility] Comment: This Pap test has been evaluated with the ThinPrep(R) Imaging System. VEGETABLE GRADER See Note [facility] Comment: [place], CT(ASCP) CT screening location: [address] [address] REVIEW VEGETABLE GRADER See Note [facility] Comment: [place], CT(ASCP) CT screening location: [address] [address] COMMENT [facility] HPV MRNA E6/E7 Not Detected Not Detected [facility] Comment: Methodology: Nicking Machine Operator-Mediated Amplification This assay detects E6/E7 viral messenger RNA (mRNA) from 14 high-risk HPV types (16,18,31,33,35,39,45,51,52,56,58,59,66,68). Cervical sources are required for HPV testing. If a vaginal source from a patient who has had a total hysterectomy with removal of cervix was submitted, please contact the testing laboratory for alternative testing options. For additional information, please refer to http://Ludei.[employer]utorGroup/faq/EZH363h0 (This link if provided for information/ educational purposes only.) Swab Cervix uteri structure / Unknown 03/20/2025 9:46 AM EDT 03/23/2025 6:54 AM EDT Narrative [facility] - 03/24/2025 5:22 PM EDT EXPLANATORY NOTE: The Pap is a screening test for cervical cancer. It is not a diagnostic test and is subject to false negative and false positive results. It is most reliable when a satisfactory sample, regularly obtained, is submitted with relevant clinical findings and history, and when the Pap result is evaluated along with historic and current clinical information. The analytical performance characteristics of this assay, when used to test SurePath(TM) specimens have been determined by [employer]. The modifications have not been cleared or approved by the FDA. This assay has been validated pursuant to the CLIA regulations and is used for clinical purposes. For additional information, please refer to https://Ludei.[employer]utorGroup/faq/PCM965 (This link is being provided for information/ educational purposes only.) us Fercho Duarte MD LAB - PATHOLOGY AND CYTOLOGY AM BULATORY Final Result [address] [address], [address] [address] * REFERRAL FOR MAMMOGRAM (03/11/2025 3:00 AM EDT) 03/11/2025 3:00 AM EDT Edvin MARTINES IMG RFL MAMMO Final Result * (ABNORMAL) HGBA1C W/MPG Routine (02/12/2025 9:39 AM EDT) HEMOGLOBIN A1C 6.0(H) <5.7 % [facility] Comment: For someone without known diabetes, a hemoglobin A1c value between 5.7% and 6.4% is consistent with prediabetes and should be confirmed with a follow-up test. For someone with known diabetes, a value <7% indicates that their diabetes is well controlled. A1c targets should be individualized based on duration of diabetes, age, comorbid conditions, and other considerations. This assay result is consistent with an increased risk of diabetes. Currently, no consensus exists regarding use of hemoglobin A1c for diagnosis of diabetes for children. MEAN PLASMA GLUCOSE 136 mg/dL (calc) [facility] Blood Blood / Unknown 02/12/2025 9 :39 AM EDT 02/12/2025 9:39 AM EDT Edvin MARTINES LAB - BLOOD DRAW Final Result [facility] [address] [place] [id number], [facility] [address] [place] [phone] * (ABNORMAL) LIPID PANEL (12/21/2023 4:30 PM EDT) CHOLESTEROL, TOTAL 168 <200 mg/dL [facility] HDL CHOLESTEROL 36(L) > OR = 50 mg/dL [facility] TRIGLYCERIDES 109 <150 mg/dL [facility] LDL-CHOLESTEROL 110(H) 99 mg/dL (calc) [facility] Comment: Reference range: <100 Desirable range <100 mg/dL for primary prevention; <70 mg/dL for patients with CHD or diabetic patients with > or = 2 CHD risk factors. LDL-C is now calculated using the Angie calculation, which is a validated novel method providing better accuracy than the Friedewald equation in the estimation of LDL-C. Angel CORADO et al. BETTY. 2013;310(19): 1387-3648 (http://education.[employer]/faq/SOM262) CHOL/HDLC RATIO 4.7 <5.0 (calc) [facility] NON-HDL CHOLESTEROL 132(H) <130 mg/dL (calc) [facility] Comment: For patients with diabetes plus 1 major ASCVD risk factor, treating to a non-HDL-C goal of <100 mg/dL (LDL-C of <70 mg/dL) is considered a therapeutic option. Blood Blood / Unknown 12/21/2023 4 :30 PM EDT 12/21/2023 4:30 PM EDT Bryan Feliz PharmD LAB - BLOOD D RAW Final Result Performing Organization Address [facility] Co de Phone Number [facility] [address] [place] [address], [employer] [address] [address] * HEPATITIS C AB W/RFLX HCV RNA, QT, RT PCR (11/03/2022 4:28 PM EST) HEPATITIS C ANTIBODY NON-REACT SHIELA NON-REACT SHIELA [facility] SIGNAL TO CUT-OFF 0.04 <1.00 [facility] Comment: HCV antibody was non-reactive. There is no laboratory evidence of HCV infection. In most cases, no further action is required. However, if recent HCV exposure is suspected, a test for HCV RNA (test code 39590) is suggested. For additional information please refer to http://education.[employer]utorGroup/faq/REZ33v9 (This link is being provided for informational/ educational purposes only.) Blood Blood / Unknown 11/03/2022 4 :28 PM EST 11/03/2022 4:29 PM EST Manolo Justice E D TECH-C LAB - BLOOD DRAW Edited R esult - Final Performing Organization Address [facility] Co de Phone Number [place] [address], [employer] [address] [place] [address] * HIV 1/2 AG & AB W/RFLX (4TH GEN) (11/03/2022 4:28 PM EST) HIV AG/AB, 4TH GEN NON-REAC TIVE NON-REAC TIVE 5 Minutes [facility] Comment: HIV-1 antigen and HIV-1/HIV-2 antibodies were not detected. There is no laboratory evidence of HIV infection. PLEASE NOTE: This information has been disclosed to you from records whose confidentiality may be protected by state law. If your state requires such protection, then the state law prohibits you from making any further disclosure of the information without the specific written consent of the person to whom it pertains, or as otherwise permitted by law. A general authorization for the release of medical or other information is NOT sufficient for this purpose. For additional information please refer to http://education.[employer]utorGroup/faq/BPJ904 (This link is being provided for informational/ educational purposes only.) The performance of this assay has not been clinically validated in patients less than 2 years old. Blood Blood / Unknown 11/03/2022 4:28 PM EST 11/03/2022 4:29 PM EST Manolo Justice E D TECH-C LAB - BLOOD DRAW Final Re sult 5 Minutes [facility] [address] [address], 5 Minutes [facility] [address] [facility] (NL[address]) [place] [address] from Last 3 Months or Most Recently Relevant to Health Maintenance Insurance [facility] [address] [employer] Care Teams Polisher Implant Relationship Specialty Start Date End Date Edvin Harrison PA [address] [place] [address] PCP - General Internal Medicine 04/17/18
--- OUTSIDE RECORDS SUMMARY | 2025-04-21 18:12 | XMS_ITS | Clinical Summary ---
Author Organization [facility] Address [address] [place] [address] Phone Care Team Providers Care Template Fitter Name Role Phone Edvin Harrison Primary Care Provider [phone] Allergies No known active allergies Medications fluticasone (VERAMYST) 27.5 mcg/actuation nasal spray Administer 2 sprays into each nostril 1 (one) time each day. Active butalbital-acetam inophen-caffeine (FIORICET, ESGIC) 50-325-40 mg per tablet Take 1 tablet by mouth every 4 (four) hours if needed for headaches. Active SUMAtriptan (IMITREX) 50 mg tablet Take 1 tablet (50 mg total) by mouth 1 (one) time if needed for migraine. May repeat dose once in 2 hours if no relief. Do not exceed 2 doses in 24 hours. Active propranoloL (INDERAL) 40 mg tablet Take 1 tablet (40 mg total) by mouth at bedtime. Active hydroCHLOROthiazi de (MICROZIDE) 12.5 mg capsule Take 1 capsule (12.5 mg total) by mouth 1 (one) time each day. Active naproxen (NAPROSYN) 500 mg tablet Take 1 tablet (500 mg total) by mouth 2 (two) times a day with meals. Active triamcinolone (KENALOG) 0.1 % cream Apply topically 2 (two) times a day. Active loratadine (CLARITIN) 10 mg tablet Take 1 tablet (10 mg total) by mouth 1 (one) time each day. Active bismuth subsalicylate (PEPTO BISMOL) 262 mg/15 mL suspension Take 15 mL by mouth every 6 (six) hours if needed for indigestion. Active diphenhydrAMINE (BENADRYL) 25 mg capsule Take 1 capsule (25 mg total) by mouth every 6 (six) hours if needed for itching. Active naloxone (NARCAN) 4 mg/0.1 mL nasal spray Administer 1 each (4 mg total) into affected nostril(s) 1 (one) time. Give 4 mg (1 spray) into one nostril. May repeat every 2-3 minutes if needed, alternating nostrils, until medical assistance becomes available. Active omeprazole (PriLOSEC) [address] capsule Take 1 capsule (10 mg total) by mouth 1 (one) time each day. Do not crush or chew. Active ferrous sulfate 325 mg (65 mg elemental iron) tablet Take 1 tablet (325 mg total) by mouth every other day. Active betamethasone dipropionate 0.05 % lotion Apply topically 2 (two) times a day. Active ketoconazole (NIZORAL) 2 % shampoo Apply topically 2 (two) times a week. Apply to damp skin, lather, leave on 5 minutes, and rinse Active lidocaine 4 % patch Apply 1 patch topically 2 (two) times a day. Active Encounters Date Type Department Care Team Description 02/13/2025 Telephone Gastroenterology - [place] 175 [facility] 175 [facility] [address] [place] [address] Rodo Houston MD special procedure from Last 3 Months Social History Tobacco Use Types Packs/Day Years Used Date Smoking Tobacco: Never Assessed Comments Unknown Sex and Gender Information Value Date Recorded Sex Assigned at Not on file Legal Sex Female 4:48 PM EST Gender Identity Not on file Sexual Orientation Not on file Plan of Treatment Upcoming Encounters Date Type Department Care Team (Late st Contact Info) Description 06/17/2025 2:00 PM EDT Appointment [facility] [address] [place] [address] Lisandro Ahmadi MD [address] [facility] [address] [place] [address] Health Maintenance Due Date Last Done Comments Breast Cancer Screening 1979 DTaP,Tdap,and Td Vaccines (1 - Tdap) 1998 Hepatitis B Vaccines (1 of 3 - 19+ 3-dose series) 1998 Cervical Cancer Screening: P ap Smear 2000 COVID-19 Vaccine (2023-2 5 season) 2024 Depression Screening 09/10/2024 Colorectal Cancer Screening: Colonoscopy 02/13/2025 HIV Screening 02/13/2025 Hepatitis C Screening 02/13/2025 Social Influencers of Health Screening 02/13/2025 Influenza Vaccine (#1) 2025 HIB Vaccines Aged Out No longer eligi ble based on patient's age to complete this topic HPV Vaccines Aged Out No longer eligi ble based on patient's age to complete this topic Hepatitis A Vaccines Aged Out No long er eligible based on patient's age to complete this topic IPV Vaccines Aged Out No longer eligi ble based on patient's age to complete this topic MMR Vaccines Aged Out No longer eligi ble based on patient's age to complete this topic Meningococcal ACWY Vaccine Aged Out N o longer eligible based on patient's age to complete this topic Meningococcal B Vaccine Aged Out No l onger eligible based on patient's age to complete this topic Pneumococcal Vaccine: Pediat rics (0 to 5 Years) and At-Risk Patients (6 to 49 Years) Aged Out No longer eligible b ased on patient's age to complete this topic RSV Immunization Patients Un mely 20 months Aged Out No longer eligible b ased on patient's age to complete this topic Varicella Vaccines Aged Out No longer eligible based on patient's age to complete this topic Insurance MEDICAID - [place] Care Teams Template Fitter Relationship Specialty Start Date End Date Edvin Harrison PA [address] [place] [address] PCP - General Physician Campus Safety Officer 02/12/25
--- OUTSIDE RECORDS SUMMARY | 2025-04-21 18:12 | XMS_ITS | Clinical Summary ---
Author Organization [email or web address] Address [address] [facility] [address] [place] [address] Care Team Providers Care Live Hanger Name Role Phone Unavailable Primary Care Provider Unavailabl e Encounters Date Type Department Care Team Description 03/31/2025 Population Health Risk Score [facility] ([facility]) Department [address] [address] Provider, Population Health Generic from Last 3 Months Social History Tobacco Use Types Packs/Day Years Used Date Smoking Tobacco: Never Assessed Comments Unknown Sex and Gender Information Value Date Recorded Sex Assigned at Not on file Legal Sex Female 9:32 PM EDT Gender Identity Not on file Sexual Orientation Not on file Plan of Treatment Health Maintenance Due Date Last Done Comments CT Colonography 1979 Colonoscopy 1979 Colorectal Cancer Screening 1979 Depression Screening 1979 FIT DNA/Cologuard 1979 FIT 1979 FOBT 1979 HIV Screening 1979 SDOH Screening 1979 Sigmoidoscopy 1979 Disability Screening 1979 Alcohol/Substance Use Screening 1991 Tobacco Screening 1991 Family Planning (PISQ) 1994 Hepatitis C Screening 1997 DTaP/Tdap/Td Vaccines (1 - Tdap) 1998 Hepatitis B Vaccines (1 of 3 - 19+ 3-dose series) 1998 Pap Smear 2000 Cervical Cancer Screening 2009 HPV/Cotest 2009 Mammogram 2019 COVID-19 Vaccine ( - 2023-2 5 season) 2024 Influenza Vaccine (#1) 2025 Zoster Vaccines (1 of 2) 2029 RSV Patients and Pa tients Aged 60 years or older (1 - 1-dose 75+ series) 2054 HIB Vaccines Aged Out No longer eligi [...] patient's age to complete this topic Meningococcal Vaccine Aged Out No mehul benedicto eligible based on patient's age to complete this topic Pneumococcal Vaccine: Pediat rics (0 to 5 Years) and At-Risk Patients (6 to 49) Years Aged Out No longer eligible b ased on patient's age to complete this topic RSV under 20 months Aged Out No longe r eligible based on patient's age to complete this topic Rotavirus Vaccines Aged Out No longer eligible based on patient's age to complete this topic
[2025-04-21 18:28] LABS: MANUAL DIFF FLAG NO
[2025-04-21 18:30] LABS: Hematocrit 36.9 % (37.0-47.0); Hemoglobin 12.4 g/dl (12.0-16.0); Imm Gran Abs Auto 0.02 X10*3/uL (0.00-0.03); Imm Gran Pct Auto 0.4 % (0.0-0.4); Lymphocytes Absolute Auto 2.7 X10*3/uL (1.2-4.9); Mean Corpuscular HGB Conc 33.6 g/dl (31.0-35.0); Mean Corpuscular Hemoglobin 28.4 pg (27.0-33.0); Mean Corpuscular Volume 84.6 fL (80.0-98.0); NRBC Abs Auto 0.000 X10*3/uL (0.0-0.012); NRBC Pct Auto 0.0 /100WBC (0.0-0.2); Platelet Count 423 X10*3/uL (160-400); Red Blood Count 4.36 X10*6/uL (4.20-5.50); White Blood Count 5.6 X10*3/uL (4.8-10.8)
[2025-04-21 18:49] LABS: Alanine Aminotransferase 41 U/L (0-31); Albumin Level 4.4 g/dL (3.5-5.0); Alkaline Phosphatase 83 U/L (39-117); Anion Gap 12 (12-20); Aspartate Amino Transferase 41 U/L (5-31); Blood Urea Nitrogen 9 mg/dL (9-16); Calcium 9.4 mg/dL (8.4-10.2); Carbon Dioxide 25 mmol/L (22-29); Chloride 104 mmol/L (96-108); Creatinine Clr Calc Pharmacy 88.1; Estimated Glomerular Filt Rate > 60; Magnesium 2.1 mg/dL (1.6-2.6); Potassium 4.2 mmol/L (3.3-5.1); Sodium 137 mmol/L (135-145); Total Protein 7.8 g/dL (6.5-8.0)
[2025-04-21 19:13] LABS: Resp Syncy Virus RNA Qual PCR NEGATIVE (Negative); SARS COV2 PCR INHOUSE NEGATIVE (Negative)
[2025-04-21 19:22] VITALS: BP 123/82; PULSE 63; RESP 16; TEMP 36.7; O2SAT 99
== END 2025-04-21 21:21 | disposition home or self-care (01) ==
PROVIDERS: Physician Assistant; Physician Assistant Medical; Emergency Provider Emergency Medicine; PCP Physician Assistant
DX: G43.909 Migraine, unspecified, not intractable, without status migrainosus (principal); Z03.818 Encounter for observation for suspected exposure to other biological agents ruled out
CPT/HCPCS: 70450; 80053; 83735; 85025; 85652; 86140; 87637; 96374; 96375; 99283; 99284; J1200; J1885; J2765

== ENCOUNTER → 2025-04-21 19:19 | Outpatient (BNV) | payer MEDICAID, SELFPAY | PROVIDERS: Emergency Provider Emergency Medicine; PCP Physician Assistant; Visit Provider Radiology Diagnostic Radiology | DX: G43.909 Migraine, unspecified, not intractable, without status migrainosus (principal) | CPT/HCPCS: 70450 ==

== ENCOUNTER 2025-08-11 08:20 | Outpatient (AMB) | payer MEDICAID, SELFPAY ==
--- OUTSIDE RECORDS SUMMARY | 2025-08-11 08:24 | XMS_ITS | Clinical Summary ---
Author Organization [employer] Address [address] [place] [address] [address] [place] [address] Care Team Providers Care Beauty Culture Teacher Name Role Phone Unavailable Primary Care Provider Unavailabl e Social History Tobacco Use Types Packs/Day Years [...] FIT DNA/Cologuard 1979 FIT 1979 FOBT 1979 Lipid Panel 1979 SDOH Screening 1979 Sigmoidoscopy 1979 Disability Screening 1979 Alcohol/Substance Use Screening 1991 Tobacco Screening 1991 Family Planning (PISQ) 1994 Hepatitis C Screening 1997 Pap Smear 2000 Cervical Cancer Screening 2009 HPV/Cotest 2009 COVID-19 Vaccine ( season) 2025 07/30/2023, 10/09/2022 Influenza Vaccine (#1) 2025 , 10/09/2022, 06/11/2019, Additional history exists Mammogram 08/30/2025 08/30/2023 DTaP/Tdap/Td Vaccines (2 - Td or Tdap) 10/20/2026 10/20/2016 Zoster Vaccines (1 of 2) 2029 RSV Patients and Patients Aged 60 years or older (1 - 1-dose 75+ series) 2054 HIV Screening Completed 11/03/2022 Hepatitis B Vaccines Completed 07/30/2023, 06/21/20 23 HIB Vaccines Aged Out No longer eligi [...] age to complete this topic Pneumococcal Vaccine: Pediatrics (0 to 5 Years) and At-Risk Patients (6 to 49) Years Aged Out No longer eligible based on patient's age to complete this topic RSV under 20 months Aged Out No longe r eligible based on patient's age to complete this topic Rotavirus Vaccines Aged Out No longer eligible based on patient's age to complete this topic
--- OUTSIDE RECORDS SUMMARY | 2025-08-11 08:24 | XMS_ITS | Clinical Summary ---
Author Organization [address] [facility] Address [address] [place] [address] Phone Care Team Providers Care Servicer Coin Machines Name Role Phone Edvin Harrison Primary Care Provider [phone] Allergies No known active allergies Medications fluticasone [...] topically 2 (two) times a day. Active bisacodyL (DULCOLAX) 5 mg EC tablet Take 2 tablets by mouth right before beginning bowel prep. See instructions provided by the office 2 tablet 06/03/20 25 Active polyethylene glycol (Golytely) 236-22.74-6.74 -5.86 gram solution Take 4L by mouth once for one dose. May substitue any PEG. Starting at 2PM the day before your procedure drink 1 8oz glasses at your own pace until you complete half of the gallon. Finish 2nd half of the gallon at 8PM. 4000 mL 06/03/20 25 Active Encounters Date Type Department Care Team Description 06/17/2025 1:55 PM EDT Anesthesia Event [facility] Endoscopy [address] [place] [address] Rohit Steve MD Korobkov, Vitaliy, DO 06/17/2025 12:34 PM EDT - 06/17/2025 11:59 PM EDT Hospital Encounter [facility] End[facility] [address] [place] [id number] Lisandro Ahmadi MD Guerin, Erik R, CRNA Colon cancer screening Discharge Disposition: Home or Self Care from Last 3 Months Surgical History Surgery Date Site/Laterality Comments STOMACH SURGERY tummy tuck CHOLECYSTECTOMY Medical History Medical History Date Comments Hypertension GERD (gastroesophageal reflux disease) Social History Tobacco Use Types Packs/Day Years Used Date Smoking Tobacco: Never Smokeless Tobacco: Never Tobacco Cessation:Counseling Given: Not Answered Alcohol Use Standard Drinks/Week Comments Not Currently 0 (1 standard drink = 0.6 oz pur e alcohol) Interpersonal Safety Answer Date Record ed Physical Abuse Unrecognized value 06/17/2025 Verbal Abuse Unrecognized value 06/17/2025 Comments No Sex and Gender Information Value Date Recorded Sex Assigned at Not on file Legal Sex Female 4:48 PM EST Gender Identity Not on file Sexual Orientation Not on file Obstetrics History Last Filed Vital Signs Vital Sign Reading Time Taken Comments Blood Pressure 140/96 06/17/2025 2:46 PM EDT Pulse 80 06/17/2025 2:46 PM EDT Temperature 36.1 C (97 F) 06/17/2025 2:26 PM EDT Respiratory Rate 16 06/17/2025 2:46 PM EDT Oxygen Saturation 99% 06/17/2025 2:46 PM EDT Inhaled Oxygen Concentration - - Weight 81.6 kg (180 lb) 06/17/2025 1:46 PM EDT Height 167.6 cm (5' 6 ) 06/17/2025 1:46 PM EDT Body Mass Index 29.05 06/17/2025 1:46 PM EDT Plan of Treatment Health Maintenance Due Date Last Done Comments Breast Cancer Screening 1979 Cervical Cancer Screening: Pap Smear 2000 Depression Screening 09/10/2024 HIV Screening 02/13/2025 Social Influencers of Health Screening 02/13/2025 Hypertension/CHF/CAD Annual BMP Blood Test 06/17/2025 DTaP,Tdap,and Td Vaccines (2 - Td or Tdap) 10/20/2026 10/20/2016 Cholesterol Screening (Lipid Panel) 12/20/2028 12/21/2023, 12/21/2023, 11/03/2022 Colorectal Cancer Screening: Colonoscopy 06/17/2035 06/17/2025 RSV Immunization Adult Patients (1 - 1-dose 75+ series) 2054 Hepatitis C Screening Completed 11/03/2022 Hepatitis B Vaccines Completed 07/30/2023, 06/21/20 COVID-19 Vaccine Completed 06/03/2025, , 10/09/2022, Additional history exists Influenza Vaccine Completed 06/03/2025, , 10/09/2022, Additional history exists HIB Vaccines Aged Out No longer eligi [...] 49 Years) Aged Out No longer eligible based on patient's age to complete this topic RSV Immunization Patients Under 20 months Aged Out No longer eligible based on patient's age to complete this topic Varicella Vaccines Aged Out No longer eligible based on patient's age to complete this topic Goals Goal Patient Goal Type Associated Problems Recent Progress Patient-Stated? Author Autogenerat ed Goal Care Plan Autogenerated Problem No Sabrina Root Procedures Procedure Name Priority Date/Time Associated Diagnosis Comments COLONOSCOPY Routine 06/17/2025 2:25 PM EDT Colon cancer screening POC PREGANCY, URINE NO CHARGE SCREENING MANUALLY RESULTED Routine 06/17/2025 1:48 PM EDT from Last 3 Months Results * COLONOSCOPY Anesthesia - MAC; [facility] ENDOSCOPY (06/17/2025 2:25 PM EDT) Anatomical Region Laterality Modality Endoscopy 06/17/2025 2:11 PM EDT Impressions 06/17/2025 3:50 PM EDT - The entire examined colon is normal on direct and retroflexion views. - No specimens collected. Recommendation: - Repeat colonoscopy in 10 years for screening purposes. Narrative 06/17/2025 3:50 PM EDT [facility] GI Patient Name: Clay Batres Procedure Date: 06/17/2025 2:11 PM Date of : 1980 Age: 45 Room: ROOM 16 Gender: Female Note Status: Concreting Supervisor Override Attending MD: Lisandro Ahmadi MD, Procedure Date No Time: 06/17/2025 Procedure: Colonoscopy Indications: Screening for colorectal malignant neoplasm Providers: Lisandro Ahmadi MD Referring MD: Medicines: Propofol per Anesthesia Complications: No immediate complications. Estimated Blood Loss: Estimated blood loss: none. Procedure: Pre-Anesthesia Assessment: - ASA Grade Assessment: II - A patient with mild systemic disease. After I obtained informed consent, the scope was passed under direct vision. Throughout the procedure, the patient's blood pressure, pulse, and oxygen saturations were monitored continuously.The Colonoscope was introduced through the anus and advanced to the cecum, identified by appendiceal orifice and ileocecal valve. The colonoscopy was performed without difficulty. The patient tolerated the procedure well. The quality of the bowel preparation was good. Findings: The perianal and digital rectal examinations were normal. The entire examined colon appeared normal on direct and retroflexion views. Procedure Code(s): --- Professional --- G0121, Colorectal cancer screening; colonoscopy on individual not meeting criteria for high risk Diagnosis Code(s): --- Professional --- Z12.11, Encounter for screening for malignant neoplasm of colon CPT copyright 2020 [employer]. All rights reserved. The codes documented in this report are preliminary and upon chemical waste management technician review may be revised to meet current compliance requirements. Lisandro Ahmadi MD 06/17/2025 3:01:02 PM This report has been signed electronically.Lisandro Ahmadi MD Number of Addenda: 0 Note Initiated On: 06/17/2025 2:11 PM Scope In: Scope Out: Endoscopy Department at [facility] - [address] [place] [id number] Procedure Note Lisandro Ahmadi MD - 06/17/2025 [facility] GI Patient Name: Clay Batres Procedure Date: 06/17/2025 2:11 PM Date of : 1980 Age: 45 Room: ROOM 16 Gender: Female Note Status: Concreting Supervisor Override Attending MD: Lisandro Ahmadi MD, Procedure Date No Time: 06/17/2025 Procedure: Colonoscopy Indications: Screening for colorectal malignant neoplasm Providers: Lisandro Ahmadi MD Referring MD: Medicines: Propofol per Anesthesia Complications: No immediate complications. Estimated Blood Loss: Estimated blood loss: none. Procedure: Pre-Anesthesia Assessment: - ASA Grade Assessment: II - A patient with mild systemic disease. After I obtained informed consent, the scope was passed under direct vision. Throughout theprocedure, the patient's blood pressure, pulse, and oxygen saturations were monitored continuously.The Colonoscope was introduced through the anus and advanced to the cecum, identified by appendiceal orifice and ileocecal valve. The colonoscopy was performed without difficulty. The patient tolerated the procedure well. The quality of the bowel preparation was good. Findings: The perianal and digital rectal examinations were normal. The entire examined colon appeared normal on direct and retroflexion views. Procedure Code(s): --- Professional --- G0121, Colorectal cancer screening; colonoscopy on individual not meeting criteria for high risk Diagnosis Code(s): --- Professional --- Z12.11, Encounter for screening for malignantneoplasm of colon CPT copyright 2020 [employer]. All rights reserved. The codes documented in this report are preliminary and upon chemical waste management technician reviewmay be revised to meet current compliance requirements. Lisandro Ahmadi MD 06/17/2025 3:01:02 PM This report has been signed electronically.Lisandro Ahmadi MD Number of Addenda: 0 Note Initiated On: 06/17/2025 2:11 PM Scope In: Scope Out: Endoscopy Department at [facility] - [address] [place] [id number] IMPRESSION: - The entire examined colon is normal on direct and retroflexion views. - No specimens collected. Recommendation: - Repeat colonoscopy in 10 years for screening purposes. Celso So DO GI~PROCEDURE ORDERABLES Edited R esult - Final * POC , urine NO CHARGE screening manually resulted (06/17/2025 1:48 PM EDT) HCG, Ur POC Negative Negative POC hCG Int QC Pass? Yes Yes Urine Urine specimen obtained by clean catch procedure / Unknown 06/17/2025 1:48 PM EDT Rohit Steve MD POINT OF CARE TEST ENTER/EDIT ORDERABLES Final Result from Last 3 Months Additional Health Concerns Active Problems Noted Date Diagnosed Date Autogenerated Problem 06/08/2025 Insurance MEDICAID - [place] Care Teams Servicer Coin Machines Relationship Specialty Start Date End Date Edvin Harrison PA [address] [place] [address] PCP - General Physician Bag Machine Helper 02/12/25
[2025-08-11 09:32] VITALS: BP 124/74; BMI 27.9
--- NOTE | 2025-08-11 09:32 | MHC.OFFVIS ---
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 No complaints. Last Pap/HPV was done in 08/03 was negative Last Mammogram was in 08/03, BI-RADS 2 No previous screening colonoscop [facility] Medical History (Updated 08/11/25 @ 09:55 by Ji Jeffers MD) FRED I (cervical intraepithelial neoplasia I) LGSIL (low grade squamous intraepithelial dysplasia) Surgical History History of cholecystectomy H/O cosmetic surgery Tubal ligation status Family History (Updated 08/11/25 @ 09:40 by Lauren York CMA) Father HTN (hypertension) Mother HTN (hypertension) Maternal Grandfather Colon cancer Social History (Updated 08/11/25 @ 09:41 by Lauren York CMA) Household Members Other:: daughter Housing: Apartment Alcohol intake: never Patient Tobacco Use Status: Never used Tobacco Current occupational status: employed Current occupation: COURT B[employer] Sexually active: Yes Sexual orientation: Straight/Heterosexual Gender identity: Female Female Reproductive History Menstrual Duration of menses: 3-5 days Date of last menstrual period: 07/25/25 Total pregnancies: 3 Full term: 2 Number of Living Children: 2 Ab induced: 1 Physical Exam Vital Signs: Last Vital Signs BP 124/74 08/11/25 09:32 BMI result Body Mass Index 27.9 Assessment & Plan Assessment & Plan (1) Well woman exam: Comment: HPV positive/colpo biopsy negative in 2022 followed negative Co testing in 08/03 Code(s): Z01.419 - Encounter for gynecological examination (general) (routine) without abnormal findings Category: Medical Plan: Cotesting done. Mammogram scheduled for today Counseled the patient about the recommended dietary allowance of 1000 mg of Calcium & 600 IU of vitamin D. GI referral placed for screening colonoscopy The patient was instructed to perform monthly self-breast exams and to schedule an annual exam in a year; All questions answered and the patient verbalized understanding. Instructed the patient to schedule annual exam in a year Orders: Referrals Gastroenterology Referral Z12.11 - Encounter for screening for malignant neoplasm of colon Coding Level of Care Code Est Pt Level 3 (49610) Est Pt Prev Care 40-64y([address]) Diagnoses Well woman exam Z01.419
== END 2025-08-11 10:22 | disposition home or self-care (01) ==
LOC: HO.HWS 08:21
PROVIDERS: PCP Physician Assistant; Visit Provider Obstetrics & Gynecology
DX: Z01.419 Encounter for gynecological examination (general) (routine) without abnormal findings (principal)
CPT/HCPCS: 99396

== ENCOUNTER 2025-08-11 10:06 | Outpatient (REF) | payer MEDICAID, SELFPAY ==
--- NOTE | ~2025-08-11 | MM_ITS ---
EXAMINATION: MM SCREENING DIGITAL BREAST TOMOSYNTHESIS, BILATERAL CLINICAL INFORMATION: Screening. Asymptomatic. COMPARISON: Mammography: Comparison is made with available priors TECHNIQUE: Digital breast mammography with tomosynthesis is performed in both the craniocaudal and mediolateral oblique views along with computer-aided detection (CAD). FINDINGS: The breasts are heterogeneously dense, which may obscure small masses. Bilateral circumscribed oval masses which wax and wane consistent with benign fibrocystic changes. Some were demonstrated to be simple cysts on prior ultrasound. There are no significant masses, abnormal calcifications, or other abnormalities. MM/MM tomosynthesis screening BI IMPRESSION: No mammographic evidence of malignancy. ASSESSMENT: BI-RADS Category 2: Benign RECOMMENDATION: Routine annual mammography screening. 1 year F/U This examination should not preclude the clinical evaluation of a suspicious palpable abnormality. This patient's information was entered into a reminder system with a target due date for their next mammogram. Electronically signed by: Phyllis Barton DO 08/11/2025 10:43 AM ANITA
== END 2025-08-11 10:07 | disposition home or self-care (01) ==
LOC: HO.MAMMO 10:06
PROVIDERS: PCP Physician Assistant; Visit Provider Physician Assistant
DX: Z01.419 Encounter for gynecological examination (general) (routine) without abnormal findings (principal); Z12.11 Encounter for screening for malignant neoplasm of colon; Z98.51 Tubal ligation status
CPT/HCPCS: 77063; 77067; 99396

== ENCOUNTER 2025-08-11 10:06 | Outpatient (REF) | payer MEDICAID, SELFPAY | END 2025-08-11 10:07 | disposition home or self-care (01) | LOC: HO.LNP 10:06 | PROVIDERS: Visit Provider Obstetrics & Gynecology | DX: Z01.419 Encounter for gynecological examination (general) (routine) without abnormal findings (principal); Z11.51 Encounter for screening for human papillomavirus (HPV) | CPT/HCPCS: 87626; 88175 ==

== ENCOUNTER → 2025-08-11 10:15 | Outpatient (BNV) | payer MEDICAID, SELFPAY | PROVIDERS: PCP Physician Assistant; Visit Provider Internal Medicine | DX: Z12.31 Encounter for screening mammogram for malignant neoplasm of breast (principal) | CPT/HCPCS: 77063; 77067 ==